=== PATIENT | male | born 1930 | race Hispanic/Latino ===

== ENCOUNTER 2018-04-07 07:41 | Day surgery (SDC) | payer OTHER ==
[2018-04-05 11:30] LABS: BASOPHILS % (AUTO) 0.8 % (0.0-5.0); EOSINOPHILS % (AUTO) 3.3 % (0.0-8.0); HEMATOCRIT 42.9 % (42-54); MEAN CORPUSCULAR HEMOGLOBIN 31.4 pg (27.0-33.0); MEAN CORPUSCULAR VOLUME 95.3 fL (79-99); NEUTROPHILS % (AUTO) 58.9 % (40.0-77.0); NUCLEATED RED BLOOD CELLS 0.1 % (0.0-0.19); PLATELET COUNT (AUTO) 103 K/uL (130-400); RED CELL DISTRIBUTION WIDTH 13.7 % (11.0-15.5); WHITE BLOOD COUNT (AUTO) 4.6 K/uL (4.8-10.8)
[2018-04-05 11:41] LABS: CREATININE 1.1 mg/dL (0.5-1.5)
[2018-04-05 12:08] VITALS: BP 116/68
[~2018-04-07] VITALS: Ht 157.5 cm; Wt 60.4 kg
[2018-04-07] VITALS (9 sets, daily range): BP systolic 118–149; BP diastolic 71–81
[~2018-04-07 07:41] MED LIST: ATOR20TA65 PO; CEFAZOLIN SODIUM 1 GM VIAL IVP SCH; DUTA0.5C17 PO; MEMA5TAB15 PO; METO-408 PO
[2018-04-07] MEDS ORDERED: WARF1TAB83 PO (08:06)
[2018-04-07 08:26] LABS: INR 1.35 (0.85-1.15); PROTHROMBIN TIME 14.1 SEC (9.6-11.6)
[2018-04-07] MEDS ORDERED: SODIUM CHLORIDE 0.9% 1000ML 1,000 ML IV ONE (08:34)
[2018-04-07] MEDS ORDERED: MEPERIDINE-PF 25 MG/ML SYG ONE ×3 (09:47→11:26)
[2018-04-07] MEDS ORDERED: MIDAZOLAM HCL 1 MG/ML 2ML VIAL ONE ×3 (09:47→11:26)
[2018-04-07] MEDS ORDERED: BUPIVACAINE/PF 0.25% 50ML VIAL IJ ONE (09:47)
[2018-04-07] MEDS ORDERED: LIDOCAINE HCL 1% MDV 50ML VIAL ONE (09:47)
[2018-04-07] MEDS ORDERED: CEFAZOLIN SODIUM 1 GM VIAL ONE (10:02)
[2018-04-07] MEDS ORDERED: VANCOMYCIN 1GM+NS 250ML 250 ML IV ONE ×2 (10:06→10:08)
[2018-04-07] MEDS ORDERED: IODIXANOL 320 MG/ML 100 ML VIAL ONE (10:21)
[2018-04-07] MEDS ORDERED: THROMBIN-JMI 5000 UNIT/VIAL TP ONE (12:04)
[2018-04-07] MEDS ORDERED: ONDANSETRON HCL 4 MG/2 ML VIAL IV PRN (12:30)
[2018-04-07] MEDS ORDERED: ACETAMINOPHEN-CODEINE 300/30MG TAB PO PRN ×2 (12:30)
== END 2018-04-07 16:44 | disposition home or self-care (01) ==
LOC: DAH 07:41 → EDBD 11:00 → DAH 16:44
PROVIDERS: ATTEND Internal Medicine Cardiovascular Disease
DX: T82.897A Other specified complication of cardiac prosthetic devices, implants and grafts, initial encounter (principal); I44.2 Atrioventricular block, complete; I42.9 Cardiomyopathy, unspecified; I10 Essential (primary) hypertension; Y83.8 Other surgical procedures as the cause of abnormal reaction of the patient, or of later complication, without mention of misadventure at the time of the procedure; Z79.899 Other long term (current) drug therapy; Z79.01 Long term (current) use of anticoagulants
CPT/HCPCS: 33223; 36415 ×2; 80048; 85025; 85610 ×2; 85730; 93005; 99156; 99157; A4606; J2175 ×3; J2250 ×3; J3370 ×2; J3490 ×3; J7030; Q9967; J0690